=== PATIENT | female | born 1955 | race Two or more races ===

== ENCOUNTER 2018-07-05 11:39 | Outpatient (CLI) | payer OTHER | END 2018-07-05 11:43 | disposition home or self-care (01) | LOC: MAMO-SONO 11:39 | DX: N60.39 Fibrosclerosis of unspecified breast (principal); Z12.39 Encounter for other screening for malignant neoplasm of breast; Z13.820 Encounter for screening for osteoporosis; Z12.31 Encounter for screening mammogram for malignant neoplasm of breast ==

== ENCOUNTER → 2018-07-05 | Outpatient (CLI) | payer OTHER ==
[~2018-07-05] MED LIST: HYZAAR 100/25 T1 TAB PO; NEURONTIN800 MG PO; QVAR7.3 G1 IH; TOPROL XL25 M1 PO; TRAMADOL HCL50 MG PO; ZAFIRLUKAST20 MG PO
== END | disposition home or self-care (01) ==
LOC: NUCLEAR 11:38
DX: M81.0 Age-related osteoporosis without current pathological fracture (principal); Z13.820 Encounter for screening for osteoporosis

== ENCOUNTER → 2018-11-12 08:13 | Outpatient (CLI) | payer OTHER | END | disposition home or self-care (01) | LOC: LAB 08:13 | DX: E03.1 Congenital hypothyroidism without goiter (principal); E78.49 Other hyperlipidemia; E11.9 Type 2 diabetes mellitus without complications; N39.0 Urinary tract infection, site not specified; I10 Essential (primary) hypertension; M25.50 Pain in unspecified joint ==

== ENCOUNTER 2022-07-27 13:13 | Outpatient (CLI) | payer OTHER | END 2022-07-27 13:18 | disposition home or self-care (01) | LOC: RAD 13:13 | PROVIDERS: ATTEND Orthopaedic Surgery | DX: M19.012 Primary osteoarthritis, left shoulder (principal) ==

== ENCOUNTER 2022-07-28 07:30 | Outpatient (CLI) | payer OTHER | END 2022-07-28 12:53 | disposition home or self-care (01) | LOC: LAB 07:30 | PROVIDERS: ATTEND Orthopaedic Surgery | DX: D64.89 Other specified anemias (principal); E88.89 Other specified metabolic disorders; D68.8 Other specified coagulation defects; N39.0 Urinary tract infection, site not specified; Z22.322 Carrier or suspected carrier of Methicillin resistant Staphylococcus aureus; E11.9 Type 2 diabetes mellitus without complications; Z76.89 Persons encountering health services in other specified circumstances; I49.9 Cardiac arrhythmia, unspecified; I10 Essential (primary) hypertension ==

== ENCOUNTER 2022-08-06 12:45 | Inpatient (IN) | payer OTHER ==
[~2022-08-06] VITALS: Ht 157.5 cm; Wt 95.3 kg
[2022-08-19] MEDS ORDERED: PROAIR RESPICL90 MCG IH (15:15)
[2022-08-19] MEDS ORDERED: PEPCID AC20 MG PO (15:15)
[2022-08-19] MEDS ORDERED: NORVASC5 MG PO (15:15)
[2022-08-19] MEDS ORDERED: SINGULAIR10 MG PO (15:16)
== END 2022-08-27 20:17 | DRG 470 ==
LOC: O/R 08-25 09:54 → SURG 08-25 12:45 → SURH 08-25 16:42
PROVIDERS: ADMIT Orthopaedic Surgery; ATTEND Orthopaedic Surgery
PROC: 8E0Y0CZ Robotic Assisted Procedure of Lower Extremity, Open Approach (ICD-10-PCS; 2022-08-25)
PROC: 0SRD069 Replacement of Left Knee Joint with Oxidized Zirconium on Polyethylene Synthetic Substitute, Cemented, Open Approach (ICD-10-PCS; principal; 2022-08-25 13:45)
DX: M17.12 Unilateral primary osteoarthritis, left knee (principal); M85.662 Other cyst of bone, left lower leg; D64.89 Other specified anemias; I10 Essential (primary) hypertension

== ENCOUNTER 2023-02-08 11:06 | Outpatient (CLI) | payer OTHER ==
[~2023-02-08 11:06] MED LIST changes: +NORVASC5 MG PO; +PEPCID AC20 MG PO; +PROAIR RESPICL90 MCG IH; +SINGULAIR10 MG PO
== END 2023-02-08 11:13 | disposition home or self-care (01) ==
LOC: RAD 11:06
PROVIDERS: ATTEND Orthopaedic Surgery
DX: M25.561 Pain in right knee (principal); M25.511 Pain in right shoulder; Z88.6 Allergy status to analgesic agent

== ENCOUNTER 2023-04-27 09:09 | Outpatient (CLI) | payer OTHER ==
[~2023-04-27] VITALS: Ht 154.9 cm; Wt 90.7 kg
[2023-04-27 10:09] LABS: HEMATOCRIT 39.3 % (36.0-45.00); HEMOGLOBIN 13.3 g/dL (12.0-15.00); MEAN CELL VOLUME 89.9 fL (80.00-100.00); MEAN CORPUSCULAR HEMOGLOBIN 30.3 pg (27.00-32.0); MEAN CORPUSCULAR HGB CONC 33.7 g/dl (32.0-36.0); PLATELET COUNT 197 K/uL (150-450); RED BLOOD COUNT 4.37 M/uL (4.00-6.00); RED CELL DISTRIBUTION WIDTH 15.6 % (11.5-14.5)
[2023-04-27 10:30] LABS: PH,URINE 7.5 (5.0-8.0); URINE APPEARANCE Clear; URINE BACTERIA 99.4 uL (0.0-1933); URINE BILIRRUBIN Negative (NEGATIVE); URINE BLOOD Negative; URINE COLOR Yellow; URINE EPITHELIAL CELLS 3.8 uL (0.0-38.8); URINE GLUCOSE Negative (NEGATIVE); URINE LEUKOCYTE Negative; URINE NITRATE Negative; URINE PROTEIN Negative (NEGATIVE); URINE UROBILINOGEN 0.2 E.U./dl; URINE WBC 1.8 uL (0.0-23.2)
[2023-04-27 10:32] LABS: URINE RBC 1.5 uL (0.0-20.8)
[2023-04-27 10:43] LABS: ALBUMIN 3.7 gm/dL (3.4-5.0); BILIRUBIN TOTAL 0.31 mg/dL (0.3-1.2); CALCIUM 9.7 mg/dL (8.5-10.1); CREATININE SERUM 0.6 mg/dL (0.55-1.02); GFR 99.71; GLOBULINA 3.1 G/DL (2.4-3.5); POTASSIUM 4.67 mEq/L (3.5-5.1); TOTAL PROTEIN 6.8 gm/dL (6.4-8.2)
[2023-04-27 10:47] LABS: INR < 0.93; PROTHROMBIN TIME 9.8 SECONDS (9.0-11.5)
[2023-04-27 10:58] LABS: COL EPI 57 SECONDS (82-175)
== END 2023-04-27 09:10 | disposition home or self-care (01) ==
LOC: LAB 09:09
PROVIDERS: ATTEND Orthopaedic Surgery
DX: D64.9 Anemia, unspecified (principal); D68.8 Other specified coagulation defects; N39.0 Urinary tract infection, site not specified; Z22.322 Carrier or suspected carrier of Methicillin resistant Staphylococcus aureus; I10 Essential (primary) hypertension; Z76.89 Persons encountering health services in other specified circumstances

== ENCOUNTER 2023-05-11 05:30 | Day surgery (SDC) | payer OTHER ==
[~2023-05-11 05:30] MED LIST changes: +CRESTOR20 MG
[2023-05-11] MEDS ORDERED: CEFAZOLIN SODIUM 1,000 MG VIAL ONE (06:34)
[2023-05-11] MEDS ORDERED: LIDOCAINE HCL/EPINEPHRINE 10MG/ML 1% 50ML IJ ONE ×2 (06:59→07:30)
[2023-05-11] MEDS ORDERED: BUPIVACAINE HCL/PF 0.5% 30ML ML ONE (06:59)
[2023-05-11] MEDS ORDERED: EPINEPHRINE HCL/PF 1 MG/ML AMPUL ONE (06:59)
[2023-05-11] MEDS ORDERED: BUPIVACAINE HCL 30 ML VIAL IJ SCH (07:30)
[2023-05-11] MEDS ORDERED: CEFAZOLIN SODIUM 1,000 MG VIAL IV ONE (07:30)
[2023-05-11] MEDS ORDERED: EPINEPHRINE HCL/PF 1 MG/ML AMPUL IM ONE (07:30)
== END 2023-05-11 13:30 | disposition home or self-care (01) ==
LOC: CIR.AMB 05:30
PROVIDERS: ATTEND Orthopaedic Surgery
DX: S83.241A Other tear of medial meniscus, current injury, right knee, initial encounter (principal); M17.11 Unilateral primary osteoarthritis, right knee; M65.861 Other synovitis and tenosynovitis, right lower leg; S83.001A Unspecified subluxation of right patella, initial encounter; Z88.8 Allergy status to other drugs, medicaments and biological substances